=== PATIENT | male | born 1940 | race Asian ===

== ENCOUNTER 2023-04-02 17:28 | Inpatient (IN) | payer OTHER ==
[2023-04-02 20:11] LABS: HEMATOCRIT 37.1 % (35.4-49); HEMOGLOBIN 11.8 GM/dL (11.7-16.9); MCH 22.5 pg (25.7-33.7); MCHC 31.7 g/dl (32.0-35.9); MEAN CELL VOLUME 71.1 fl (80-96); MEAN PLT VOLUME 9.5 fl (7.5-11.1); PLATELET COUNT 165 10^3/uL (134-434); RBC 5.22 M/mm3 (4.00-5.60); RDW 15.1 % (11.9-15.9); WHITE BLOOD COUNT 5.9 K/mm3 (4.0-10.0)
[2023-04-02 20:20] LABS: INR 1.75 (0.83-1.09); PROTHROMBIN TIME (PATIENT) 20.2 SEC (9.7-13.0)
[2023-04-02 20:23] LABS: ACTIVATED PTT 32.1 SECONDS (25.2-36.5)
[2023-04-02 20:37] LABS: POTASSIUM 3.9 mmol/L (3.5-5.1)
[2023-04-02 20:39] LABS: CALCIUM 8.9 mg/dL (8.5-10.1)
[2023-04-02 20:40] LABS: ALBUMIN 3.1 g/dl (3.4-5.0); BLOOD UREA NITROGEN 9.2 mg/dL (7-18)
[2023-04-02 20:43] LABS: CREATININE 1.1 mg/dL (0.55-1.3)
[2023-04-02 20:44] LABS: TOT PROT 6.9 g/dl (6.4-8.2)
[2023-04-02 20:46] LABS: BILIRUBIN,TOTAL 3.3 mg/dL (0.2-1)
[2023-04-02 21:00] LABS: EPI CELLS 5 /uL (0-25.1); HYALINE CASTS 0 /uL (0-3.1); URINE APPEARANCE CLEAR; URINE BACTERIA 10 /uL (0-1359); URINE BILIRUBIN NEGATIVE (NEGATIVE); URINE COLOR DK YELLOW; URINE GLUCOSE (UA) NEGATIVE (NEGATIVE); URINE KETONE NEGATIVE (NEGATIVE); URINE LEUK ESTERASE TRACE (NEGATIVE); URINE NITRITE NEGATIVE (NEGATIVE); URINE PROTEIN 2+ (NEGATIVE); URINE RBC 17 /uL (0-23.9); URINE UROBILINOGEN 0.2 mg/dL (0.2-1.0); URINE WBC 6 /uL (0-25.8)
[2023-04-02 21:37] LABS: ANISOCYTOSIS 1+; MACROCYTOSIS 1+; OVALOCYTE 1+; TARGET CELLS 1+
[2023-04-02] MEDS ORDERED: MECLIZINE HCL 12.5 MG TABLET ONE (22:21)
[2023-04-02] MEDS ORDERED: MAG HYDROX/AL HYDROX/SIMETH 30 ML UNIT-DOSE CUP ONE (22:22)
[2023-04-02] MEDS ORDERED: FAMOTIDINE 20 MG/50 ML IVPB 20 MG/50 ML MG IVPB ONE (22:22)
[2023-04-02 23:03] LABS: BILIRUBIN,DIRECT 0.2 mg/dL (0.0-0.2)
[2023-04-02 23:09] LABS: N-TERMINAL BNP 938.3 pg/ml (5-450)
[2023-04-03] MEDS: SODIUM CHLORIDE 1,000 ML IV SCH (01:07)
[2023-04-03] MEDS ORDERED: ACETAMINOPHEN 1000 MG/100 ML BAG IVPB ONE (04:55)
[2023-04-03] MEDS ORDERED: ACETAMINOPHEN INJECTION 100 ML IVPB ONE (05:10)
[2023-04-03] MEDS: INSULIN ASPART SLIDING SCALE (NOVOLOG) 1 VIAL SQ SCH ×4 (08:05→22:15)
[2023-04-03] MEDS ORDERED: APIXABAN 2.5 MG TABLET ONE (10:03)
[2023-04-03] MEDS ORDERED: RANOLAZINE E.R. 500 MG TABLET (FP) ONE (10:03)
[2023-04-03] MEDS ORDERED: REMDESIVIR 200 MG in SODIUM CHLORIDE 250 ML IVPB ONE (10:15)
[2023-04-03] MEDS: APIXABAN 2.5 MG TABLET PO SCH ×2 (10:15→21:33)
[2023-04-03] MEDS: RANOLAZINE E.R. 500 MG TABLET (FP) PO SCH ×2 (10:16→21:33)
[2023-04-03] MEDS: FINASTERIDE 5 MG TABLET (FP) PO SCH (11:20)
[2023-04-03] MEDS ORDERED: INSULIN (NOVOLOG) ASPART 100 UNITS/ML 10ML VIAL ONE ×2 (11:39→11:43)
[2023-04-03 13:02] LABS: HEMATOCRIT 34.8 % (35.4-49); HEMOGLOBIN 10.8 GM/dL (11.7-16.9); MCH 22.3 pg (25.7-33.7); MCHC 31.1 g/dl (32.0-35.9); MEAN CELL VOLUME 71.7 fl (80-96); MEAN PLT VOLUME 9.8 fl (7.5-11.1); PLATELET COUNT 152 10^3/uL (134-434); RBC 4.85 M/mm3 (4.00-5.60)
[2023-04-03 14:00] LABS: CHLORIDE 107 mmol/L (98-107); SODIUM 144 mmol/L (136-145)
[2023-04-03 14:10] LABS: BILIRUBIN,DIRECT 0.1 mg/dL (0.0-0.2)
[2023-04-03 14:13] LABS: BLOOD UREA NITROGEN 5.8 mg/dL (7-18); CO2 22 mmol/L (21-32); MAGNESIUM 1.3 mg/dL (1.8-2.4)
[2023-04-03 14:14] LABS: GLUCOSE,RANDOM 127 mg/dL (74-106)
[2023-04-03 14:16] LABS: PHOSPHOROUS 2.4 mg/dL (2.5-4.9); SGPT/ALT 17 U/L (13-61)
[2023-04-03 14:18] LABS: CREATININE 0.7 mg/dL (0.55-1.3); SGOT/AST 16 U/L (15-37); TOT PROT 5.1 g/dl (6.4-8.2)
[2023-04-03 14:19] LABS: ALK PHOS 44 U/L (45-117)
[2023-04-03 14:26] LABS: ALBUMIN 2.3 g/dl (3.4-5.0); ANION GAP 14 mmol/L (4-13); BILIRUBIN,TOTAL 0.2 mg/dL (0.2-1); CALCIUM 6.8 mg/dL (8.5-10.1); POTASSIUM 2.8 mmol/L (3.5-5.1)
[2023-04-03 14:30] LABS: ANISOCYTOSIS 1+; MACROCYTOSIS 0
[2023-04-03] MEDS ORDERED: POTASSIUM CHLORIDE ORAL LIQUID 20 MEQ/15 ML PO ONE (16:13)
[2023-04-03] MEDS ORDERED: MAGNESIUM SULF 50% (8.12 MEQ/2 ML-1 GM VIAL) IVPB ONE (16:24)
[2023-04-03] MEDS ORDERED: POTASSIUM CHLORIDE TABS 20 MEQ TABLET.ER (FP) PO ONE (16:44)
[2023-04-03] MEDS ORDERED: KCL 10 MEQ IVPB 10 MEQ/100 ML INFUS.BAG IVPB ONE ×2 (16:44→17:49)
[2023-04-03] MEDS: KCL 10 MEQ IVPB 10 MEQ/100 ML INFUS.BAG IVPB SCH ×3 (16:54→20:33)
[2023-04-03] MEDS ORDERED: POTASSIUM CHLORIDE 10 MEQ in SODIUM CHLORIDE 0.45% 1,000 ML IVPB SCH (17:30)
[2023-04-03] MEDS ORDERED: MAGNESIUM OXIDE 400 MG TABLET (FP) ONE (17:49)
[2023-04-03] MEDS ORDERED: NAPH,MB-DB/K PH,MBDB POWDER PACKET ONE (17:49)
[2023-04-03] MEDS: NAPH,MB-DB/K PH,MBDB POWDER PACKET PO SCH ×2 (17:58→21:33)
[2023-04-03] MEDS: MAGNESIUM OXIDE 400 MG TABLET (FP) PO SCH ×2 (17:58→21:33)
[2023-04-03] MEDS: MELATONIN 5 MG TABLETS PO PRN (21:33)
[2023-04-03] MEDS: BENZONATATE 200 MG CAPSULE PO PRN (22:17)
[2023-04-04] MEDS: SODIUM CHLORIDE 1,000 ML IV SCH ×2 (03:15→12:32)
[2023-04-04] MEDS ORDERED: LORazepam 0.5 MG TABLET PO ONE (03:45)
[2023-04-04] MEDS ORDERED: INSULIN (NOVOLOG) ASPART 100 UNITS/ML 10ML VIAL ONE ×2 (06:19→23:18)
[2023-04-04] MEDS: NAPH,MB-DB/K PH,MBDB POWDER PACKET PO SCH ×3 (06:21→22:56)
[2023-04-04] MEDS: INSULIN ASPART SLIDING SCALE (NOVOLOG) 1 VIAL SQ SCH ×4 (06:24→23:28)
[2023-04-04 10:12] LABS: BLOOD UREA NITROGEN 12.5 mg/dL (7-18)
[2023-04-04 10:15] LABS: BLOOD UREA NITROGEN 12.7 mg/dL (7-18)
[2023-04-04 10:18] LABS: MAGNESIUM 1.9 mg/dL (1.8-2.4); PHOSPHOROUS 3.3 mg/dL (2.5-4.9)
[2023-04-04 10:19] LABS: TOT PROT 6.6 g/dl (6.4-8.2)
[2023-04-04 10:21] LABS: BILIRUBIN,TOTAL 0.2 mg/dL (0.2-1)
[2023-04-04] MEDS: MAGNESIUM OXIDE 400 MG TABLET (FP) PO SCH ×2 (10:36→22:56)
[2023-04-04] MEDS: FINASTERIDE 5 MG TABLET (FP) PO SCH (10:36)
[2023-04-04] MEDS: RANOLAZINE E.R. 500 MG TABLET (FP) PO SCH ×2 (10:36→22:56)
[2023-04-04] MEDS: DOCUSATE SODIUM 100 MG CAPSULE (FP) PO PRN (10:36)
[2023-04-04] MEDS: APIXABAN 2.5 MG TABLET PO SCH ×2 (10:36→22:56)
[2023-04-04] MEDS: TAMSULOSIN HCL 0.4 MG CAP PO SCH (10:36)
[2023-04-04 11:06] LABS: ALBUMIN 2.9 g/dl (3.4-5.0); CALCIUM 8.4 mg/dL (8.5-10.1)
[2023-04-04 11:24] LABS: CALCIUM 8.5 mg/dL (8.5-10.1)
[2023-04-04] MEDS: REMDESIVIR 100 MG in SODIUM CHLORIDE 250 ML IVPB SCH (12:33)
[2023-04-04] MEDS: DEXAMETHASONE SOD PHOSPHATE 4 MG/1 ML VIAL IVPUSH SCH (13:36)
[2023-04-04 14:53] VITALS: BMI 27.0
[2023-04-05] MEDS: SODIUM CHLORIDE 1,000 ML IV SCH ×2 (04:14→06:36)
[2023-04-05] MEDS: NAPH,MB-DB/K PH,MBDB POWDER PACKET PO SCH (06:36)
[2023-04-05] MEDS: INSULIN ASPART SLIDING SCALE (NOVOLOG) 1 VIAL SQ SCH ×4 (06:37→23:58)
[2023-04-05] MEDS: FINASTERIDE 5 MG TABLET (FP) PO SCH (10:29)
[2023-04-05] MEDS: MAGNESIUM OXIDE 400 MG TABLET (FP) PO SCH ×2 (10:29→23:23)
[2023-04-05] MEDS: APIXABAN 2.5 MG TABLET PO SCH ×2 (10:29→23:23)
[2023-04-05] MEDS: DOCUSATE SODIUM 100 MG CAPSULE (FP) PO PRN (10:29)
[2023-04-05] MEDS: DEXAMETHASONE SOD PHOSPHATE 4 MG/1 ML VIAL IVPUSH SCH (10:30)
[2023-04-05] MEDS: TAMSULOSIN HCL 0.4 MG CAP PO SCH (10:30)
[2023-04-05] MEDS: RANOLAZINE E.R. 500 MG TABLET (FP) PO SCH ×2 (10:30→23:23)
[2023-04-05] MEDS: REMDESIVIR 100 MG in SODIUM CHLORIDE 250 ML IVPB SCH (10:39)
[2023-04-05] MEDS: BENZONATATE 200 MG CAPSULE PO PRN (11:36)
[2023-04-05 12:05] LABS: HEMATOCRIT 34.2 % (35.4-49); MCHC 32.2 g/dl (32.0-35.9); MEAN CELL VOLUME 71.6 fl (80-96); MEAN PLT VOLUME 9.9 fl (7.5-11.1); PLATELET COUNT 147 10^3/uL (134-434); RBC 4.78 M/mm3 (4.00-5.60); RDW 14.8 % (11.9-15.9); WHITE BLOOD COUNT 4.3 K/mm3 (4.0-10.0)
[2023-04-05 12:28] LABS: POTASSIUM 5.2 mmol/L (3.5-5.1)
[2023-04-05 12:35] LABS: CALCIUM 7.7 mg/dL (8.5-10.1)
[2023-04-05 12:36] LABS: BLOOD UREA NITROGEN 21.6 mg/dL (7-18); MAGNESIUM 1.9 mg/dL (1.8-2.4)
[2023-04-05 12:39] LABS: CREATININE 0.9 mg/dL (0.55-1.3); IRON SERUM 41 ug/dL (50-175); TOTAL IRON BINDING CAPACITY 207 ug/dL (250-450)
[2023-04-05] MEDS ORDERED: INSULIN (NOVOLOG) ASPART 100 UNITS/ML 10ML VIAL ONE (23:56)
[2023-04-06] MEDS: INSULIN ASPART SLIDING SCALE (NOVOLOG) 1 VIAL SQ SCH ×4 (06:26→21:22)
[2023-04-06] MEDS ORDERED: ACETYLCYSTEINE 20% 200MG/ML 4 ML VIAL *FOR ORAL / INH USE ONLY ONE (09:45)
[2023-04-06] MEDS ORDERED: ALBUTEROL SO4 0.083% IH SOL 2.5 MG/3 ML VIAL.NEB. NEB ONE (09:46)
[2023-04-06] MEDS: ALBUTEROL SO4 0.5 % INH SOLN 2.5 MG/0.5 ML VIAL.NEB. NEB PRN ×3 (10:11→20:57)
[2023-04-06] MEDS: ACETYLCYSTEINE 20% 200MG/ML 4 ML VIAL *FOR ORAL / INH USE ONLY NEB PRN (10:12)
[2023-04-06] MEDS: BENZONATATE 200 MG CAPSULE PO PRN (10:39)
[2023-04-06] MEDS: DEXAMETHASONE SOD PHOSPHATE 4 MG/1 ML VIAL IVPUSH SCH (10:40)
[2023-04-06] MEDS: FINASTERIDE 5 MG TABLET (FP) PO SCH (10:40)
[2023-04-06] MEDS: TAMSULOSIN HCL 0.4 MG CAP PO SCH (10:40)
[2023-04-06] MEDS: CALCITRIOL 0.25 MCG CAPSULE (FP) PO SCH (10:40)
[2023-04-06] MEDS: MAGNESIUM OXIDE 400 MG TABLET (FP) PO SCH ×2 (10:40→21:09)
[2023-04-06] MEDS: RANOLAZINE E.R. 500 MG TABLET (FP) PO SCH ×2 (10:40→21:09)
[2023-04-06] MEDS: APIXABAN 2.5 MG TABLET PO SCH ×2 (10:40→21:09)
[2023-04-06] MEDS: DOCUSATE SODIUM 100 MG CAPSULE (FP) PO PRN (10:40)
[2023-04-06] MEDS: REMDESIVIR 100 MG in SODIUM CHLORIDE 250 ML IVPB SCH (10:42)
[2023-04-06] MEDS: PANTOPRAZOLE 40 MG TABLET PO SCH (11:12)
[2023-04-06] MEDS ORDERED: guaiFENesin/D-M SUGAR-FREE/ACLHOL-FREE (200 MG/10 MG) 5 ML PO PRN (11:46)
[2023-04-06] MEDS ORDERED: FUROSEMIDE 40 MG/4 ML INJECTABLE VIAL IVPUSH ONE (12:09)
[2023-04-06] MEDS: LOSARTAN POTASSIUM 50 MG TABLET PO SCH (12:48)
[2023-04-06] MEDS: guaiFENesin/D-M SUGAR-FREE/ACLHOL-FREE 118 ML BOTTLE PO PRN (17:47)
[2023-04-06] MEDS ORDERED: INSULIN (NOVOLOG) ASPART 100 UNITS/ML 10ML VIAL ONE (21:00)
[2023-04-06] MEDS: MELATONIN 5 MG TABLETS PO PRN (21:09)
[2023-04-07] MEDS: INSULIN ASPART SLIDING SCALE (NOVOLOG) 1 VIAL SQ SCH ×4 (06:45→21:15)
[2023-04-07 09:14] LABS: HEMATOCRIT 38.3 % (35.4-49); HEMOGLOBIN 11.8 GM/dL (11.7-16.9); MCH 22.1 pg (25.7-33.7); MCHC 30.8 g/dl (32.0-35.9); MEAN CELL VOLUME 71.8 fl (80-96); MEAN PLT VOLUME 10.3 fl (7.5-11.1); PLATELET COUNT 154 10^3/uL (134-434); RBC 5.34 M/mm3 (4.00-5.60); RDW 15.3 % (11.9-15.9); WHITE BLOOD COUNT 12.8 K/mm3 (4.0-10.0)
[2023-04-07 09:53] LABS: POTASSIUM 4.9 mmol/L (3.5-5.1)
[2023-04-07 10:07] LABS: CALCIUM 8.3 mg/dL (8.5-10.1)
[2023-04-07 10:08] LABS: BLOOD UREA NITROGEN 30.1 mg/dL (7-18)
[2023-04-07 10:11] LABS: CREATININE 1.2 mg/dL (0.55-1.3)
[2023-04-07] MEDS: LOSARTAN POTASSIUM 50 MG TABLET PO SCH (10:51)
[2023-04-07] MEDS: CALCITRIOL 0.25 MCG CAPSULE (FP) PO SCH (10:51)
[2023-04-07] MEDS: RANOLAZINE E.R. 500 MG TABLET (FP) PO SCH ×2 (10:51→21:14)
[2023-04-07] MEDS: DEXAMETHASONE SOD PHOSPHATE 4 MG/1 ML VIAL IVPUSH SCH (10:52)
[2023-04-07] MEDS: APIXABAN 2.5 MG TABLET PO SCH ×2 (10:57→21:14)
[2023-04-07] MEDS: FINASTERIDE 5 MG TABLET (FP) PO SCH (10:57)
[2023-04-07] MEDS: MAGNESIUM OXIDE 400 MG TABLET (FP) PO SCH ×2 (10:57→21:15)
[2023-04-07] MEDS: REMDESIVIR 100 MG in SODIUM CHLORIDE 250 ML IVPB SCH ×2 (10:57→19:20)
[2023-04-07] MEDS: TAMSULOSIN HCL 0.4 MG CAP PO SCH (10:57)
[2023-04-07] MEDS: PANTOPRAZOLE 40 MG TABLET PO SCH (10:57)
[2023-04-07] MEDS ORDERED: INSULIN (NOVOLOG) ASPART 100 UNITS/ML 10ML VIAL ONE ×3 (10:59→21:00)
[2023-04-07] MEDS: BENZONATATE 200 MG CAPSULE PO PRN (11:57)
[2023-04-07] MEDS ORDERED: FUROSEMIDE 40 MG/4 ML INJECTABLE VIAL IVPUSH ONE ×2 (16:55→18:30)
[2023-04-07] MEDS: MELATONIN 5 MG TABLETS PO PRN (21:14)
[2023-04-08] MEDS: INSULIN ASPART SLIDING SCALE (NOVOLOG) 1 VIAL SQ SCH ×4 (06:11→21:50)
[2023-04-08] MEDS ORDERED: INSULIN (NOVOLOG) ASPART 100 UNITS/ML 10ML VIAL ONE ×2 (08:03→21:24)
[2023-04-08 09:04] LABS: HEMOGLOBIN 11.8 GM/dL (11.7-16.9); MCH 22.1 pg (25.7-33.7); MCHC 31.2 g/dl (32.0-35.9); MEAN CELL VOLUME 70.7 fl (80-96); MEAN PLT VOLUME 10.6 fl (7.5-11.1); PLATELET COUNT 149 10^3/uL (134-434); RBC 5.37 M/mm3 (4.00-5.60); RDW 15.5 % (11.9-15.9); WHITE BLOOD COUNT 11.6 K/mm3 (4.0-10.0)
[2023-04-08 09:08] LABS: POTASSIUM 4.8 mmol/L (3.5-5.1)
[2023-04-08 09:14] LABS: CALCIUM 8.9 mg/dL (8.5-10.1)
[2023-04-08] MEDS: TAMSULOSIN HCL 0.4 MG CAP PO SCH (10:48)
[2023-04-08] MEDS: CALCITRIOL 0.25 MCG CAPSULE (FP) PO SCH (10:48)
[2023-04-08] MEDS: MAGNESIUM OXIDE 400 MG TABLET (FP) PO SCH ×2 (10:48→21:50)
[2023-04-08] MEDS: PANTOPRAZOLE 40 MG TABLET PO SCH (10:48)
[2023-04-08] MEDS: LOSARTAN POTASSIUM 50 MG TABLET PO SCH (10:48)
[2023-04-08] MEDS: FINASTERIDE 5 MG TABLET (FP) PO SCH (10:48)
[2023-04-08] MEDS: RANOLAZINE E.R. 500 MG TABLET (FP) PO SCH ×2 (10:48→21:49)
[2023-04-08] MEDS: DEXAMETHASONE SOD PHOSPHATE 4 MG/1 ML VIAL IVPUSH SCH (10:49)
[2023-04-08] MEDS: APIXABAN 2.5 MG TABLET PO SCH ×2 (10:49→21:49)
[2023-04-08] MEDS ORDERED: ALBUTEROL SO4 HFA INHALER IH PRN (13:50)
[2023-04-08] MEDS: FUROSEMIDE 40 MG/4 ML INJECTABLE VIAL IVPUSH SCH (16:48)
[2023-04-08] MEDS: BENZONATATE 200 MG CAPSULE PO PRN (17:19)
[2023-04-08] MEDS ORDERED: REMDESIVIR 200 MG in SODIUM CHLORIDE 250 ML IVPB ONE ×2 (18:00→19:00)
[2023-04-08] MEDS: amLODIPine BESYLATE 5 MG TABLET (FP) PO SCH (19:49)
[2023-04-08] MEDS ORDERED: REMDESIVIR 100 MG in SODIUM CHLORIDE 250 ML IVPB ONE (21:00)
[2023-04-08] MEDS: MELATONIN 5 MG TABLETS PO PRN (21:50)
[2023-04-08] MEDS: BUDESONIDE/FORMETEROL FUMARATE 160/4.5 mcg INHALER IH SCH (21:52)
[2023-04-09] MEDS: INSULIN ASPART SLIDING SCALE (NOVOLOG) 1 VIAL SQ SCH ×4 (06:35→22:31)
[2023-04-09] MEDS: TAMSULOSIN HCL 0.4 MG CAP PO SCH (10:55)
[2023-04-09] MEDS: LOSARTAN POTASSIUM 50 MG TABLET PO SCH (10:55)
[2023-04-09] MEDS: DEXAMETHASONE SOD PHOSPHATE 4 MG/1 ML VIAL IVPUSH SCH (10:56)
[2023-04-09] MEDS: CALCITRIOL 0.25 MCG CAPSULE (FP) PO SCH (10:58)
[2023-04-09] MEDS: FUROSEMIDE 40 MG/4 ML INJECTABLE VIAL IVPUSH SCH (10:58)
[2023-04-09] MEDS: PANTOPRAZOLE 40 MG TABLET PO SCH (10:58)
[2023-04-09] MEDS: APIXABAN 2.5 MG TABLET PO SCH ×2 (10:58→22:31)
[2023-04-09] MEDS: FINASTERIDE 5 MG TABLET (FP) PO SCH (10:58)
[2023-04-09] MEDS: RANOLAZINE E.R. 500 MG TABLET (FP) PO SCH ×2 (10:58→22:32)
[2023-04-09] MEDS: MAGNESIUM OXIDE 400 MG TABLET (FP) PO SCH ×2 (10:58→22:31)
[2023-04-09] MEDS: amLODIPine BESYLATE 5 MG TABLET (FP) PO SCH (10:58)
[2023-04-09] MEDS: BUDESONIDE/FORMETEROL FUMARATE 160/4.5 mcg INHALER IH SCH ×2 (11:00→22:32)
[2023-04-09] MEDS: BENZONATATE 200 MG CAPSULE PO PRN (13:33)
[2023-04-09] MEDS ORDERED: INSULIN (NOVOLOG) ASPART 100 UNITS/ML 10ML VIAL ONE (22:18)
[2023-04-10] MEDS: APIXABAN 2.5 MG TABLET PO SCH ×2 (00:10→11:49)
[2023-04-10] MEDS: INSULIN ASPART SLIDING SCALE (NOVOLOG) 1 VIAL SQ SCH ×3 (01:05→12:04)
[2023-04-10] MEDS: MELATONIN 5 MG TABLETS PO PRN (01:06)
[2023-04-10] MEDS: guaiFENesin/D-M SUGAR-FREE/ACLHOL-FREE 118 ML BOTTLE PO PRN ×2 (01:06→08:35)
[2023-04-10] MEDS: amLODIPine BESYLATE 5 MG TABLET (FP) PO SCH ×2 (08:13→11:51)
[2023-04-10] MEDS: LOSARTAN POTASSIUM 50 MG TABLET PO SCH ×2 (08:13→11:24)
[2023-04-10 09:10] LABS: POTASSIUM 3.7 mmol/L (3.5-5.1)
[2023-04-10] MEDS: TAMSULOSIN HCL 0.4 MG CAP PO SCH (09:11)
[2023-04-10 09:13] LABS: ALBUMIN 2.6 g/dl (3.4-5.0); CALCIUM 9.9 mg/dL (8.5-10.1)
[2023-04-10 09:14] LABS: HEMATOCRIT 38.9 % (35.4-49); HEMOGLOBIN 12.1 GM/dL (11.7-16.9); LYMPH % 5.3 % (8-40); MCH 21.9 pg (25.7-33.7); MCHC 31.1 g/dl (32.0-35.9); MEAN CELL VOLUME 70.3 fl (80-96); MEAN PLT VOLUME 11.1 fl (7.5-11.1); MONO % 6.3 % (3.8-10.2); NEUT % 88.4 % (42.8-82.8); PLATELET COUNT 168 10^3/uL (134-434); RBC 5.54 M/mm3 (4.00-5.60); WHITE BLOOD COUNT 16.1 K/mm3 (4.0-10.0)
[2023-04-10 09:18] LABS: TOT PROT 6.1 g/dl (6.4-8.2)
[2023-04-10 09:49] LABS: ANISOCYTOSIS 1+; MACROCYTOSIS 0; TARGET CELLS 1+
[2023-04-10 09:53] LABS: PLATELET ESTIMATE ADEQUATE
[2023-04-10] MEDS ORDERED: INSULIN (LEVEMIR) 100 UNITS/ML UNITS SQ SCH (10:00)
[2023-04-10] MEDS: ACETYLCYSTEINE 20% 200MG/ML 4 ML VIAL *FOR ORAL / INH USE ONLY NEB PRN (10:10)
[2023-04-10] MEDS: ALBUTEROL SO4 0.5 % INH SOLN 2.5 MG/0.5 ML VIAL.NEB. NEB PRN (10:10)
[2023-04-10] MEDS ORDERED: INSULIN (NOVOLOG) ASPART 100 UNITS/ML 10ML VIAL ONE (11:31)
[2023-04-10] MEDS: FINASTERIDE 5 MG TABLET (FP) PO SCH (11:49)
[2023-04-10] MEDS: BUDESONIDE/FORMETEROL FUMARATE 160/4.5 mcg INHALER IH SCH (11:49)
[2023-04-10] MEDS: RANOLAZINE E.R. 500 MG TABLET (FP) PO SCH (11:49)
[2023-04-10] MEDS: MAGNESIUM OXIDE 400 MG TABLET (FP) PO SCH (11:49)
[2023-04-10] MEDS: CALCITRIOL 0.25 MCG CAPSULE (FP) PO SCH (11:49)
[2023-04-10] MEDS: PANTOPRAZOLE 40 MG TABLET PO SCH (11:49)
[2023-04-10] MEDS: FUROSEMIDE 40 MG/4 ML INJECTABLE VIAL IVPUSH SCH (12:02)
[2023-04-10] MEDS: DEXAMETHASONE SOD PHOSPHATE 4 MG/1 ML VIAL IVPUSH SCH (12:06)
[2023-04-10 14:24] VITALS: BP 140/81; PULSE 65; RESP 20; TEMP 97.8
== END 2023-04-10 16:00 | disposition home or self-care (01) | DRG 177 ==
LOC: JER 17:28 → JERBED 23:24 → J7W 04-03 18:46 → OBSVTOIN 04-07 09:50
PROVIDERS: ADMIT Internal Medicine; ATTEND Family Medicine
PROC: XW033E5 Introduction of Remdesivir Anti-infective into Peripheral Vein, Percutaneous Approach, New Technology Group 5 (ICD-10-PCS; principal; 2023-04-08)
DX: U07.1 COVID-19 (principal); G93.41 Metabolic encephalopathy; E11.9 Type 2 diabetes mellitus without complications; I11.0 Hypertensive heart disease with heart failure; I50.9 Heart failure, unspecified; E78.5 Hyperlipidemia, unspecified; I25.10 Atherosclerotic heart disease of native coronary artery without angina pectoris; R50.9 Fever, unspecified; I48.91 Unspecified atrial fibrillation; Z95.1 Presence of aortocoronary bypass graft
CPT/HCPCS: 0241U-QW; 36415; 70450-TC; 71045-TC-FY; 76705-TC; 80048; 80053; 81003; 82248; 82607; 82962; 83540; 83550; 83605; 83735; 83880; 84100; 84443; 84484; 85025; 85027; 85610; 85730; 86140; 87040; 87086; 87635; 93005; 93010; 94640; 94761; 97116-GP; 97161-GP; 99285-25; G0378; J0131; J0248